=== PATIENT | male | born 2000 | race African-American/Black ===

== ENCOUNTER 2020-06-20 18:09 | Emergency (ER) | payer OTHER ==
[~2020-06-20] VITALS: Ht 182.9 cm; Wt 77.1 kg
[2020-06-20 18:10] VITALS: Ht 182.9 cm; Wt 77.1 kg
[2020-06-20 18:44] VITALS: BP 122/70
== END 2020-06-20 18:44 ==
LOC: ED 18:09
DX: Z02.89 Encounter for other administrative examinations (principal)